=== PATIENT | female | born 2000 | race Caucasian/White ===

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

== ENCOUNTER 2020-11-26 18:44 | Emergency (ER) | payer OTHER ==
[~2020-11-26] VITALS: Ht 157.5 cm; Wt 60.0 kg
[2020-11-26] MEDS ORDERED: SERT-158 PO (19:01)
[2020-11-26] MEDS ORDERED: ETON68IM3 SD (19:01)
[2020-11-26] MEDS ORDERED: LORazepam 1 MG TABLET PO ONE (20:15)
[2020-11-26 20:26] VITALS: BP 121/60
== END 2020-11-26 20:30 | disposition home or self-care (01) ==
LOC: EMS 18:46
DX: R53.1 Weakness (principal); R11.0 Nausea; T43.225A Adverse effect of selective serotonin reuptake inhibitors, initial encounter; F41.9 Anxiety disorder, unspecified; F32.9 Major depressive disorder, single episode, unspecified; Y92.89 Other specified places as the place of occurrence of the external cause
CPT/HCPCS: 99283

== ENCOUNTER 2021-06-10 16:34 | Emergency (ER) | payer OTHER ==
[~2021-06-10] VITALS: Ht 160 cm; Wt 56.8 kg
[~2021-06-10 16:34] MED LIST changes: +ETON68IM3 SD; -FLUO-191 PO; +SERT-158 PO
[2021-06-10] MEDS ORDERED: TRAZ-252 PO (16:54)
[2021-06-10 17:44] LABS: BASOPHILS % (AUTO) 0.6 % (0.0-2.0); EOSINOPHILS % (AUTO) 0.6 % (1.0-6.0); HEMATOCRIT 39.5 % (36-46); HEMOGLOBIN 13.3 g/dL (12.0-16.0); LYMPHOCYTES # (AUTO) 1.5 K/uL (1.0-4.8); LYMPHOCYTES % (AUTO) 22.2 % (22.0-44.0); MEAN CORPUSCULAR HGB CONC 33.8 G/dL (31.0-37.0); MEAN CORPUSCULAR VOLUME 83 fL (80-100); MONOCYTES # (AUTO) 0.4 K/uL (0.1-1.0); MONOCYTES % (AUTO) 6.1 % (2.0-9.0); NEUTROPHILS # (AUTO) 4.8 K/uL (1.8-7.7); NEUTROPHILS % (AUTO) 70.5 % (40.0-70.0); PLATELET COUNT (AUTO) 229 K/uL (150-450); RED BLOOD CELL COUNT(AUTO) 4.76 MIL/uL (4.00-5.20); RED CELL DISTRIBUTION WIDTH 14.3 % (11.5-14.5)
[2021-06-10 17:51] LABS: ANION GAP 7 mmol/L (8-16); CALCIUM, TOTAL 9.2 mg/dL (8.8-10.5); CARBON DIOXIDE 29 mmol/L (22-29); CHLORIDE 104 mmol/L (98-107); CREATININE 0.64 mg/dL (0.60-1.30); GLOMERULAR FILTR. RATE CALC > 60 mL/min (>60); GLUCOSE,RANDOM 92 mg/dL (70-110); POTASSIUM 3.7 mmol/L (3.5-5.1); SODIUM SERUM 140 mmol/L (136-145); UREA NITROGEN, BLOOD 7 mg/dL (7-18)
[2021-06-10 19:45] VITALS: BP 127/70
== END 2021-06-10 20:46 | disposition home or self-care (01) ==
LOC: EMS 16:34
DX: N93.9 Abnormal uterine and vaginal bleeding, unspecified (principal); F32.9 Major depressive disorder, single episode, unspecified; F41.9 Anxiety disorder, unspecified; Z79.899 Other long term (current) drug therapy
CPT/HCPCS: 80048; 84703; 85025; 99283

== ENCOUNTER 2021-07-30 18:38 | Emergency (ER) | payer OTHER ==
[~2021-07-30] VITALS: Ht 160 cm; Wt 56.8 kg
[~2021-07-30 18:38] MED LIST changes: -SERT-158 PO; +TRAZ-252 PO
[2021-07-30 18:40] VITALS: BP 123/81
[2021-07-30] MEDS ORDERED: IBUPROFEN 600 MG TABLET PO ONE (19:15)
[2021-07-30] MEDS ORDERED: ACET-2080 PO (20:12)
[2021-07-30] MEDS ORDERED: IBUP-1554 PO (20:12)
== END 2021-07-30 20:27 | disposition home or self-care (01) ==
LOC: EMS 18:40
DX: S90.122A Contusion of left lesser toe(s) without damage to nail, initial encounter (principal); F41.9 Anxiety disorder, unspecified; F32.A Depression, unspecified; C96.6 Unifocal Langerhans-cell histiocytosis; Z85.9 Personal history of malignant neoplasm, unspecified; Z98.890 Other specified postprocedural states; X58.XXXA Exposure to other specified factors, initial encounter; Y93.41 Activity, dancing; Y92.89 Other specified places as the place of occurrence of the external cause; Y99.8 Other external cause status
CPT/HCPCS: 29515; 29550; 99283

== ENCOUNTER 2022-01-12 19:49 | Emergency (ER) | payer OTHER ==
[~2022-01-12] VITALS: Ht 160 cm; Wt 59.1 kg
[~2022-01-12 19:49] MED LIST changes: +ACET-2080 PO; -ETON68IM3 SD; +ETON68IM4 SD; +IBUP-1554 PO
[2022-01-12] MEDS ORDERED: ACETAMINOPHEN 325 MG TABLET PO ONE (20:30)
[2022-01-12] MEDS ORDERED: ONDANSETRON HCL 4 MG TABLET PO ONE (20:30)
[2022-01-12 22:42] VITALS: BP 123/66
== END 2022-01-12 22:54 | disposition home or self-care (01) ==
LOC: EMS 19:50
DX: S06.0XAA Concussion with loss of consciousness status unknown, initial encounter (principal); F41.9 Anxiety disorder, unspecified; F32.A Depression, unspecified; C80.1 Malignant (primary) neoplasm, unspecified; W19.XXXA Unspecified fall, initial encounter; Y93.89 Activity, other specified; Y92.89 Other specified places as the place of occurrence of the external cause; Y99.8 Other external cause status
CPT/HCPCS: 99284; 70450; 84703; 72125; Q0162